=== PATIENT | male | born 1990 | race Caucasian/White ===

== ENCOUNTER 2018-03-16 10:00 | Emergency (ER) | payer OTHER ==
[~2018-03-16] VITALS: Ht 170.2 cm; Wt 68.7 kg
[2018-03-16 10:47] VITALS: BP 136/118
[2018-03-16] MEDS ORDERED: DIPH,PERTUSS(ACELL),TET VAC/PF 0.5 ML IM-VACC ONE ×2 (11:00→11:04)
--- NOTE | 2018-03-16 11:05 | NUR ---
TO XR PER GRETCHEN
--- NOTE | 2018-03-16 11:49 | NUR ---
PUNCTURE WOUND TO HEEL LT FOOT. PRESENTS THIN METAL DOMENIC, STATES DOMENIC WENT THROUGH HIS BOOT WHILE WALKING HIS DOG TODAY.
[2018-03-16] MEDS ORDERED: BACITRACIN ZINC OINT 500U/GM, 0.9 GM ONE (11:52)
== END 2018-03-16 12:04 | disposition home or self-care (01) ==
LOC: ED 12:00
DX: S91.332A Puncture wound without foreign body, left foot, initial encounter (principal); X58.XXXA Exposure to other specified factors, initial encounter; Y93.89 Activity, other specified; Y92.69 Other specified industrial and construction area as the place of occurrence of the external cause; Y99.0 Civilian activity done for income or pay
CPT/HCPCS: 90471; 90715; 99283